=== PATIENT | female | born 1965 ===

== ENCOUNTER → 2018-02-05 | Day surgery (SDC) | payer OTHER ==
[~2018-02-05] MED LIST: ADVAIR 100-501 EACH IH; CIPRO500 MG PO; NAPROXEN375 M1 PO; VENTOLIN HFA18 GM IH
== END | disposition home or self-care (01) ==
LOC: ADM 01-29 10:00 → CIR.AMB 05:15
DX: N95.0 Postmenopausal bleeding (principal); N88.2 Stricture and stenosis of cervix uteri